=== PATIENT | female | born 1940 | race Two or more races ===

== ENCOUNTER 2017-04-15 12:00 | Inpatient (IN) | payer MEDICARE, OTHER ==
--- NOTE | ~2017-04-15 | DS ---
Unit #: [id number] #: [id number] Patient: KEMI BRADLEY [id number] [address] [address] [id number] I MR#: [id number] NAME: KEMI BRADLEY. ROOM: 241 Age: 76 Sex: F Admission Date: 04/15/2017 : 1940 Discharge Date: 04/18/2017 Attending Physician: Christian Saucedo M.D. Primary Care Physician: Aixa Chow M.D. DISCHARGE SUMMARY PRIMARY DIAGNOSIS Unable to ambulate secondary to acute compression fracture of the lumbar 4 vertebral body. SECONDARY DIAGNOSES 1. Iron deficiency anemia. 2. Transaminitis, improving at discharge with pending hepatitis viral panel. 3. Chronic obstructive pulmonary disease, stable. 4. Diabetes mellitus type 2, stable. HOSPITAL COURSE The patient was admitted to the hospital. Interventional radiology was consulted for kyphoplasty, which was done in the afternoon on 04/17/2017. The patient's pain is much improved but still having some difficulty with ambulation and has multiple stairs in her house. Physical therapy evaluation is to be done shortly after this dictation, and if the physical therapy evaluation is supportive, the patient will be discharged to subacute rehab today. If the patient surprises us, then she would be discharged to home. Regarding her anemia, the patient did have low iron studies and was started on iron replacement for her anemia. B12 and folate were within normal limits. DISCHARGE DISPOSITION Likely to subacute rehab. DISCHARGE STATUS Stable. DISCHARGE ACTIVITY With her wheeled walker at all times. DISCHARGE DIET Diabetic diet. DISCHARGE FOLLOWUP With her primary care physician in 2-6 weeks. DISCHARGE MEDICATIONS 1. Bactroban ointment applied to abrasions b.i.d. 2. Gabapentin 300 mg p.o. t.i.d. Unit #: [id number] #: [id number] Patient: KEMI BRADLEY 3. Januvia 100 mg p.o. daily. 4. Arimidex 1 mg p.o. daily. 5. Toprol XL 50 mg p.o. daily. 6. Altace 10 mg p.o. daily. 7. Ferrous gluconate 324 mg p.o. daily. 8. Hydrocodone with Tylenol 5/325 mg 1 tablet p.o. q.4 hours p.r.n. pain. (This is a chronic medication.) 9. Glucovance 5/500 mg 2 tablets p.o. b.i.d. Dictated by... Christian Saucedo M.D. MAGO/silvestre TD: 04/18/2017 11:37 JOB #: [id number] DISCHARGE SUMMARY Page 1 of 1 X Christian Saucedo MD X DISCHARGE SUMMARY
--- NOTE | ~2017-04-15 | XA148 ---
[facility] A Service of [facility] RADIOLOGY TEXT RESULTS PATIENT: KEMI BRADLEY LOCATION: [facility] : 42 UNIT #: [id number] AGE: [address]: Christian Saucedo MD SEX: F ORDER DR: [id number] [place] [id number] [facility]. [place], [place] [address] [id number] I MR#: [id number] Acc #: [id number] NAME: KEMI BRADLEY. : 1940 SEX: F STUDY DATE/TIME: 04/17/2017 11:38 UNIT: [facility] ROOM: [facility] STUDY DESCRIPTION: XA Kyphoplasty Lumbar Attending Physician: Christian Saucedo M.D. Ordering Physician: Christian Saucedo M.D. Primary Care Physician: Aixa Chow M.D. MEDICAL IMAGING REPORT This report is preliminary unless electronic signature is present EXAM Fluoroscopically guided L4 kyphoplasty. DATE OF STUDY 04/17/2017 CLINICAL HISTORY L4 compression fracture. Back pain and osteopenia. PROCEDURE Informed consent was obtained from the patient through use of a feeder operator automatic. A skin site was selected with fluoroscopic guidance and marked, after the patient was positioned in the prone position on the fluoroscopy table. Fentanyl and Versed were administered for IV conscious sedation with hemodynamic monitoring provided by the nursing staff throughout the procedure. Total sedation time 60 minutes. After local anesthesia through a small incision, and following periosteal anesthesia, Kyphon cannulas were advanced into the L4 vertebral body via bipedicular approach. After balloon insertion and inflation, methylmethacrylate cement was injected into the cavities without complication. A total of 12.6 minutes of fluoroscopy was utilized and 4 spot images obtained. Postprocedure images showed satisfactory cement placement after successful kyphoplasty. IMPRESSION 1. Technically successful L4 bipedicular kyphoplasty. 2. Conscious sedation as above. No immediate complication. Dictated by... Yaya Iraheta M.D. [facility] A Service [facility] RADIOLOGY TEXT RESULTS PATIENT: KEMI BRADLEY [facility] [place] [id number] UNIT #: [id number] AGE: [address]: Christian Saucedo MD SEX: F ORDER DR: THIS IS AN ELECTRONICALLY VERIFIED REPORT Yaya Iraheta M.D. at 04/18/2017 5:04 PM RANDOLPH/moises TD: 04/18/2017 10:35 JOB #: [id number] MEDICAL IMAGING REPORT Page 1 of 1 COPY
--- NOTE | ~2017-04-15 | CT98 ---
[facility] A Service of [facility] RADIOLOGY TEXT RESULTS PATIENT: KEMI BRADLEY LOCATION: [facility] 241- : 42 UNIT #: [id number] AGE: [address]: Christian Saucedo MD SEX: F ORDER DR: [id number] [facility] [address] [facility] [place], [place] [address] [id number] I MR#: [id number] Acc #: [id number] NAME: KEMI BRADLEY. : 1940 SEX: F STUDY DATE/TIME: 04/15/2017 18:33 UNIT: [facility] ROOM: [facility] STUDY DESCRIPTION: CT Lumbar Spine Wo Cont Attending Physician: Christian Saucedo M.D. Ordering Physician: Lissette Brooks M.D. Primary Care Physician: Aixa Chow M.D. MEDICAL IMAGING REPORT This report is preliminary unless electronic signature is present EXAM Lumbar spine CT. HISTORY Low back pain after fall on 04/13/2017. Compression fracture L4 seen on x-ray. TECHNIQUE This CT exam was performed with one or more of the following radiation dose reduction techniques: Automatic exposure control, adjustment of mA and/or kV according to patient size, and iterative reconstruction. FINDINGS CT lumbar spine performed. Bone and soft tissue windows reviewed. Sagittal and coronal reconstructions performed. No prior imaging of this region for comparison. Visualized portions of the liver, spleen, adrenal glands, kidneys unremarkable. Atherosclerotic arterial calcifications. No adenopathy. Five lumbar type vertebral segments. Marked bony demineralization. There is a severe compression deformity of the L4 vertebral body. Loss of height most pronounced centrally at up to about 67%. Loss of height anteriorly and posteriorly on the order of about 36% relative to normal L3 vertebral body. There are visible fracture planes in the superior endplate and the inferior endplate. There is some mild haziness in the anterior paraspinal fat at the L4 level. The constellation of findings suggests that this is an acute to very early subacute fracture likely related to the patient's trauma described in history as a fall on 04/13/2017. There is retropulsion of posterior cortex more pronounced along the inferior aspect of the L4 vertebral body. Posterior retropulsion by up to about 6 mm. Posterior elements are intact. No other traumatic fractures are seen. There is overall straightening of the normal lumbar lordosis. Other vertebral body heights are normal. [facility] A Service of [facility] RADIOLOGY TEXT RESULTS PATIENT: KEMI BRADLEY LOCATION: [place] [address] : 42 UNIT #: [id number] AGE: [address]: Christian Saucedo MD SEX: F ORDER DR: Intervertebral disc space heights show moderate narrowing L5-S1. Relatively normal intervertebral disc space heights elsewhere. T11-T12, T12-L1, L1-L2, L2-L3: No disc bulge or herniation. Spinal canal diameter normal. Neural foramina patent without evidence of exiting nerve impingement. Relatively mild facet degenerative changes. L3-L4: Some minimal posterior concentric disc bulging. No spinal stenosis. The neural foramina are within normal limits of caliber. There are mild to moderate facet degenerative changes. The retropulsion of posterior cortex at L4, more pronounced inferiorly shows anterior thecal sac contact but no mass effect on the thecal sac. There is mild to mild/moderate central spinal canal narrowing on the order of about 1 cm. At L4-L5, there is no significant disc bulge. The compression deformity in conjunction with moderate to marked L4-L5 facet hypertrophic change is causing moderate foraminal narrowing bilaterally greater on the right than the left. Correlate with any L4 dermatomal symptoms, particularly on the right. L5-S1: Mild posterior concentric disc osteophyte complex. No spinal stenosis. Mild to moderate foraminal narrowing due predominant to facet degenerative change. There is no clear indication of exiting nerve impingement. IMPRESSION 1. Acute to very early subacute L4 compression deformity. Likely related to the patient's stated fall on 04/13/2017. There is marked loss of height in the central portion of L4 on the order of about about 67%. Loss of height along the anterior and posterior aspects of the L4 vertebral body about 36%. Fracture planes remain visible in the superior and inferior endplates and there is mild haziness and stranding in the fat along the anterior aspect of the L4 vertebral body consistent with post-traumatic edema. There is retropulsion of posterior cortex of the L4 vertebral body more pronounced along its inferior aspect. This results in mild to mild/moderate central spinal canal narrowing. The retropulsed cortex abuts but does not cause mass effect on the thecal sac. There is no free fragment. 2. No other traumatic fractures are seen. There is no traumatic malalignment. 3. There is narrowing of the bilateral L4-L5 neural foramina due to the compression deformity and associated moderate to marked bilateral facet degenerative changes. Narrowing greater on right than left. Correlate with any L4 dermatomal symptoms, particularly on the left. 4. Relatively mild degenerative changes elsewhere in the lumbar spine. Please see [id number] descriptions in body of report. Dictated by... [facility] A Service of [facility] RADIOLOGY TEXT RESULTS PATIENT: KEMI BRADLEY LOCATION: [place] [address] : 42 UNIT #: [id number] AGE: [address]: Christian Saucedo MD SEX: F ORDER DR: Jose Skaggs M.D. THIS IS AN ELECTRONICALLY VERIFIED REPORT Jose Skaggs M.D. at 04/17/2017 10:43 PM Neeta TD: 04/16/2017 11:32 JOB #: [id number] MEDICAL IMAGING REPORT Page 1 of 1 COPY
--- NOTE | ~2017-04-15 | XA231 ---
[facility] A Service [facility] RADIOLOGY TEXT RESULTS PATIENT: KEMI BRADLEY LOCATION: [facility] : 42 UNIT #: [id number] AGE: [address]: Christian Saucedo MD SEX: F ORDER DR: [id number] [place] [id number] [facility]. [place], [place] [address] [id number] I MR#: [id number] Acc #: [id number] NAME: KEMI BRADLEY : 1940 SEX: F STUDY DATE/TIME: 04/17/2017 9:42 UNIT: [facility] ROOM: [facility] STUDY DESCRIPTION: XA Consult Attending Physician: Christian Saucedo M.D. Ordering Physician: Christian Saucedo M.D. Primary Care Physician: Aixa Chow M.D. MEDICAL IMAGING REPORT This report is preliminary unless electronic signature is present EXAM Kyphoplasty consult. HISTORY OF PRESENT ILLNESS A 76-year-old female who fell this past Saturday and developed acute low back pain. The pain is so severe that she is bed bound and cannot get up out of bed or walk. She presented to the emergency room with this pain and imaging showed an acute L4 compression fracture. She has been given analgesic pain medications; however, it has not really helped her with her pain. She is able to get out of bed in the hospital with assistance to go to the bathroom but it is very uncomfortable for her. PAST MEDICAL HISTORY: 1. Depression 2. AODM 3. GERD. 4. COPD. 5. Essential hypertension. 6. Hyperlipidemia. 7. Breast cancer status post left lumpectomy 5 years ago. PAST SURGICAL HISTORY 1. Cholecystectomy. 2. Right hand surgery. 3. Right knee surgery. 4. Cataract extraction. SOCIAL HISTORY The patient stopped smoking 15 years ago. She does not drink alcohol. FAMILY HISTORY Noncontributory. [facility] A Service [facility] RADIOLOGY TEXT RESULTS PATIENT: KEMI BRADLEY LOCATION: [facility] : 42 UNIT #: [id number] AGE: [address]: Christian Saucedo MD SEX: F ORDER DR: ALLERGIES: Penicillin MEDICATIONS: In the hospital, she is currently on: 1. Altace 10 mg p.o. once a day, 2. Glucovance 5/500 mg tablet, 2 tablets p.o. twice a day. 3. Toprol XL 50 mg p.o. 1 a day. 4. Gabapentin 300 mg p.o. three times a day. 5. Januvia 100 mg p.o. once a day. 6. Hydrocodone/acetaminophen 5/325, 1 tablet p.o. q.4h. as needed for pain. IMAGING REVIEW: The patient has a lumbar spine CT from 04/15/2017. This shows an acute compression fracture of the L4 vertebral body with approximately 67% loss of height and retropulsion of some fracture fragment posteriorly. No other compression fractures are noted. REVIEW OF SYSTEMS: The patient complains of back pain as described above. All other systems reviewed and were negative. PHYSICAL EXAM Vital signs: The patient is afebrile. Heart rate is 80. Respirations 16, blood pressure 139/66, oxygen saturation 96% on room air. Lungs: Clear to auscultation bilaterally. Cardiac: Regular rate and rhythm, no murmur, rub or gallops. Musculoskeletal: There is a focal point tenderness involving the lower lumbar spine. ASSESSMENT/PLAN 1. A 76-year-old with acute L4 compression fracture and intractable low back pain refractory to pain medication. The low-back pain is extremely limiting this patient has mobility, and she has essentially bed bound of this point. 2. I discussed the kyphoplasty procedure with the patient along with its risks and benefits. I did discuss the goal of treatment was to reduce or hopefully eliminate her pain to that she can become more functional. I did discuss the fact that this may not completely eliminate her pain; however, the goal would be to reduce the pain enough so that she can get out of bed and perform her activities of daily living, and hopefully not be required to take any pain medication. 3. The patient understands and wishes to proceed with the procedure. She will be scheduled tomorrow for kyphoplasty of L4. Dictated by... [facility] A Service of [facility] RADIOLOGY TEXT RESULTS PATIENT: KEMI BRADLEY LOCATION: [place] [address] : 42 UNIT #: [id number] AGE: [address]: Christian Saucedo MD SEX: F ORDER DR: Christiano Kendall M.D. THIS IS AN ELECTRONICALLY VERIFIED REPORT Christiano Kendall M.D. at 04/17/2017 7:40 AM ETRRY/faisal TD: 04/16/2017 21:02 JOB #: [id number] MEDICAL IMAGING REPORT Page 1 of 1 COPY
--- NOTE | ~2017-04-15 | CR181 ---
[facility] A Service of [facility] RADIOLOGY TEXT RESULTS PATIENT: KEMI BRADLEY LOCATION: [facility] : 42 UNIT #: [id number] AGE: [address]: Lissette Brooks MD SEX: F ORDER DR: [id number] [place] [id number] [facility]. [place], [place] [address] [id number] P MR#: [id number] Acc #: [id number] NAME: KEMI BRADLEY : 1940 SEX: F STUDY DATE/TIME: 04/15/2017 16:38 UNIT: [facility] ROOM: STUDY DESCRIPTION: CR Lumbar Spine 2 or 3 Views Ordering Physician: Lissette Brooks M.D. Primary Care Physician: Aixa Chow M.D. MEDICAL IMAGING REPORT This report is preliminary unless electronic signature is present EXAM Lumbar series, 04/15/2017. INDICATION 76-year-old female who fell 2 days ago and has lumbar pain. TECHNIQUE Three views of the lumbar spine. COMPARISON There are no comparison studies. FINDINGS The bones are osteoporotic. There is a compression fracture deformity of L4 with height loss estimated on the order about 40% to 50%. This is age indeterminate without prior studies for comparison. Minimal retropulsion of the posterior margins of L4. Alignment and vertebral body heights are otherwise preserved. There is facet arthropathy from L3-4 through L5-S1 and there is degenerative disc disease at L4-5 and L5-S1. The aorta demonstrates atherosclerotic change and tortuosity. Minimal levoscoliosis. IMPRESSION 1. Age-indeterminate compression fracture of L4 with height loss estimated on the order about 40% to 50%. Minimal retropulsion of the posterior margins of L4. Correlate with patient point tenderness. This could be better assessed in terms of acuity with MRI and assessment of marrow edema. 2. Degenerative changes in the lumbar spine as described. 3. Atherosclerotic disease of the aorta which is tortuous and ectatic. STAT * RESULT STS. [facility] A Service of [facility] RADIOLOGY TEXT RESULTS PATIENT: [facility] BRADLEY [id number] UNIT #: [id number] AGE: [address]: Lissette Brooks MD SEX: F ORDER DR: Dictated by... Jeffery Bae M.D. THIS IS AN ELECTRONICALLY VERIFIED REPORT Jeffery Bae M.D. at 04/15/2017 8:03 PM CARL/moises TD: 04/15/2017 17:22 JOB #: [id number] MEDICAL IMAGING REPORT Page 1 of 1 COPY
--- NOTE | ~2017-04-15 | HP ---
Unit #: [id number] #: [id number] Patient: KEMI BRADLEY [id number] [address] [address] [id number] I MR#: [id number] NAME: KEMI BRADLEY. ROOM: 241 Age: 76 Sex: F Admission Date: 04/15/2017 : 1940 Attending Physician: Aide Stewart M.D. Primary Care Physician: Aixa Chow M.D. HISTORY AND PHYSICAL CHIEF COMPLAINT L4 compression fracture with intractable pain. HISTORY OF PRESENT ILLNESS This pleasant 76-year-old female with AODM, hypertension, COPD, is admitted for intractable back pain. The patient fell two days ago. She was running or walking towards her grandchild and possibly tripped, fell on her back, hit her left hand and her foot. She presented to this emergency department earlier today for intractable back pain and a CT scan does show a L4 compression fracture. In the ER, she was given [place] and referred for admission. The patient denies true weakness or numbness in the legs. PAST MEDICAL HISTORY 1. Depression. 2. AODM. 3. GERD. 4. COPD. 5. Essential hypertension. 6. Hyperlipidemia. 7. Breast cancer status post left lumpectomy five years ago. 8. Negative cardiac catheterization 07/26/15. 9. Cholecystectomy. 10. Right hand surgery. 11. Right knee surgery. 12. Cataract extraction. SOCIAL HISTORY The patient is originally from [place], living with her grandson, stopped smoking about 15 years ago, does not drink alcohol. FAMILY HISTORY No malignancy. ALLERGIES Penicillin. HOME MEDICATIONS Possibly: 1. Celexa. 2. Neurontin. 3. Januvia. 4. Metoprolol. Unit #: [id number] #: [id number] Patient: KEMI BRADLEY 5. Prilosec. 6. Arimidex. 7. Glyburide. 8. Metformin. 9. Ramipril. 10. Crestor. We will verify. REVIEW OF SYSTEMS Difficult to obtain due to language barrier. PHYSICAL EXAMINATION GENERAL APPEARANCE: A very pleasant, uncomfortable appearing 76-year-old female. VITAL SIGNS: Temperature 98.6. Pulse 80. Respirations 16. Blood pressure 139/66. O2 saturation 96% on room air. HEENT: Eyes: PERRLA. Extraocular muscles are intact. Pharynx is benign. NECK: Supple without adenopathy or thyromegaly. CHEST: Clear. BACK: With percussion tenderness over the lower lumbar spine. Negative straight leg raising. CARDIAC: Normal S1, S2 without S3, S4 or murmur. ABDOMEN: Bowel sounds are present. No hepatosplenomegaly, tenderness or masses. EXTREMITIES: Without edema. Pedal pulses are present. There is a small abrasion noted at the top of the left great toe. There is an abrasion near the left wrist. NEUROLOGIC: The patient is awake, alert, oriented. Cranial nerves are intact. Equal strength throughout. DIAGNOSTIC STUDIES LABORATORY: Hematocrit 35.2, normal white count, platelet count. SMA-7: Glucose 163, BUN 24, chloride 99. IMAGING: Plain x-rays show an L4 compression fracture with DJD. CT scan shows an acute to early L4 compression fracture with 67% loss of height, retropulsion, mild to moderate canal narrowing. ASSESSMENT 1. L4 compression fracture with intractable pain following a fall. 2. AODM. 3. COPD. 4. Hypertension. 5. Hyperlipidemia. 6. GERD. 7. Status post left lumpectomy for breast cancer. 8. Mild dehydration. PLAN 1. We will admit, give IV fluids and supportive treatment. 2. Interventional Radiology to see in the morning for possible kyphoplasty. 3. Pain control. 4. SCDs for DVT prophylaxis. 5. Verify home medicines. Unit #: [id number] #: [id number] Patient: KEMI BRADLEY Dictated by Aide Stewart M.D. AML/bd TD: 04/16/2017 06:34 JOB #: [id number] HISTORY AND PHYSICAL Page 1 of 1 X Aide Stewart MD HISTORY AND PHYSICAL
[~2017-04-15 12:00] MED LIST: ALTACE10 M1 PO; ALTACE10 MG PO; AMLODIPINE BESY10 MG PO; ANASTROZOLE1 MG PO; ARIMIDEX1 MG PO; ASPIR-TRIN325 MG PO; CELEBREX PO; CELECOXIB200 MG PO; CELEXA10 MG PO; CITALOPRAM HBR10 MG PO; COMBIVENT U/D3 M1 INH; COMBIVENT14.7 GM INH; CRESTOR10 MG PO; FLEXERIL PO; FUROSEMIDE40 MG PO; GABAPENTIN300 M2 PO; GABAPENTIN300 MG PO; GLUCOVANCE 5/501 TA3 PO; GLYBURIDE-METFO1 TA3 PO; JANUVIA PO; JANUVIA100 MG PO; LEVAQUIN750 M1 PO; LEVAQUIN750 MG PO; METOPROLOL SUCC50 MG PO; MICRONASE2.5 MG PO; NAPROSYN250 M1 PO; NORVASC PO; OMEPRAZOLE20 M2 PO; PHENERGAN25 MG PO; PRAVACHOL10 MG PO; PRAVASTATIN SOD10 MG PO; PROAIR HFA8.5 GM IH; RAMIPRIL10 MG PO; SYMBICORT INH; TOPROL XL50 MG PO; XOPENEX HFA15 GM INH; ZITHROMAX1 G/PKT PO
[2017-04-15 18:58] LABS: BASOPHIL% 0.7 % (0-2.5); EOSINOPHIL# 0.1 X10e3 (0-0.7); EOSINOPHIL% 0.8 % (0.0-7.0); HEMATOCRIT 35.2 % (35.0-45.0); HEMOGLOBIN 10.9 gm/dL (12.0-16.0); LYMPHOCYTE# 1.7 X10e3 (1.0-3.5); LYMPHOCYTE% 23.9 % (17.0-45.0); MEAN CELL VOLUME 74.8 FL (83-96); MEAN CORPUSCULAR HEMOGLOBIN 23.2 PG (28-34); MONOCYTE# 0.7 X10e3 (0-1.0); MONOCYTE% 10.1 % (3.0-12.0); NEUTROPHIL# 4.5 X10e3 (1.5-7.1); NEUTROPHIL% 64.5 % (40-75); PLATELET COUNT 144 X10e3 (140-420); RED CELL DISTRIBUTION WIDTH 17.1 % (11.0-15.5); WHITE BLOOD COUNT 6.9 X10e3 (4.0-10.5)
[2017-04-15 19:00] LABS: DIFF IND NO
[2017-04-15 19:15] LABS: CALCIUM SERUM 9.1 mg/dL (8.4-10.2); CREATININE SERUM 0.8 mg/dL (0.6-1.4); GLOM FILT RATE Estimated 72.7 mL/min (>60); POTASSIUM 4.4 mmol/L (3.5-5.1)
[2017-04-15 19:23] LABS: INR 1.1; PARTIAL THROMBOPLASTIN TIME 26.8 SECONDS (23.5-31.3); PROTHROMBIN TIME (PATIENT) 11.4 SECONDS (10.0-11.7)
[2017-04-15] MEDS ORDERED: OMEPRAZOLE MAGN20 MG PO (22:36)
[2017-04-15] MEDS ORDERED: ALTACE10 MG PO (22:36)
[2017-04-15] MEDS ORDERED: GLUCOVANCE 5-51 EACH PO (22:37)
[2017-04-15] MEDS ORDERED: ARIMIDEX1 MG (22:38)
[2017-04-15] MEDS ORDERED: TOPROL XL50 MG PO (22:39)
[2017-04-16] MEDS ORDERED: GABAPENTIN300 M2 PO (01:24)
[2017-04-16] MEDS ORDERED: JANUVIA PO (01:25)
[2017-04-16] MEDS ORDERED: HYDROCODON-ACE1 EAC7 PO (01:26)
[2017-04-16 06:00] LABS: BASOPHIL% 0.6 % (0-2.5); EOSINOPHIL# 0.1 X10e3 (0-0.7); EOSINOPHIL% 1.7 % (0.0-7.0); HEMATOCRIT 30.7 % (35.0-45.0); HEMOGLOBIN 9.7 gm/dL (12.0-16.0); LYMPHOCYTE# 1.6 X10e3 (1.0-3.5); LYMPHOCYTE% 23.2 % (17.0-45.0); MEAN CELL VOLUME 74.9 FL (83-96); MEAN CORPUSCULAR HEMOGLOBIN 23.6 PG (28-34); MEAN CORPUSCULAR HGB CONC 31.5 g/dL (30-36); MEAN PLATELET VOLUME 7.9 FL (6.5-11.5); MONOCYTE# 0.8 X10e3 (0-1.0); MONOCYTE% 11.5 % (3.0-12.0); NEUTROPHIL# 4.4 X10e3 (1.5-7.1); PLATELET COUNT 119 X10e3 (140-420); RED CELL DISTRIBUTION WIDTH 17.5 % (11.0-15.5); WHITE BLOOD COUNT 6.9 X10e3 (4.0-10.5)
[2017-04-16 06:02] LABS: DIFF IND NO
[2017-04-16 06:40] LABS: ALBUMIN SERUM 3.3 g/dL (3.5-5.0); BILIRUBIN,TOTAL 1.3 mg/dL (0.2-2.0); BUN/CREATININE RATIO 38.57; CALCIUM SERUM 8.6 mg/dL (8.4-10.2); CREATININE SERUM 0.7 mg/dL (0.6-1.4); GLOM FILT RATE Estimated 85.4 mL/min (>60); POTASSIUM 3.9 mmol/L (3.5-5.1); PROTEIN TOTAL SERUM 6.8 g/dL (6.0-8.3)
[2017-04-17 06:17] LABS: HEMATOCRIT 31.3 % (35.0-45.0); HEMOGLOBIN 9.7 gm/dL (12.0-16.0); MEAN CELL VOLUME 75.7 FL (83-96); MEAN CORPUSCULAR HEMOGLOBIN 23.4 PG (28-34); MEAN CORPUSCULAR HGB CONC 30.9 g/dL (30-36); MEAN PLATELET VOLUME 7.4 FL (6.5-11.5); RED BLOOD COUNT 4.14 X10e (3.90-5.30); RED CELL DISTRIBUTION WIDTH 17.2 % (11.0-15.5); WHITE BLOOD COUNT 4.4 X10e3 (4.0-10.5)
[2017-04-17 06:27] LABS: PARTIAL THROMBOPLASTIN TIME 25.2 SECONDS (23.5-31.3); PROTHROMBIN TIME (PATIENT) 11.2 SECONDS (10.0-11.7)
[2017-04-17 06:59] LABS: ALBUMIN SERUM 3.1 g/dL (3.5-5.0); BILIRUBIN,TOTAL 1.7 mg/dL (0.2-2.0); BUN/CREATININE RATIO 21.66; CALCIUM SERUM 8.5 mg/dL (8.4-10.2); CREATININE SERUM 0.6 mg/dL (0.6-1.4); GLOM FILT RATE Estimated 89.8 mL/min (>60); POTASSIUM 4.2 mmol/L (3.5-5.1); PROTEIN TOTAL SERUM 6.4 g/dL (6.0-8.3)
[2017-04-17 07:17] LABS: FOLATE (FOLIC ACID) 22.7 ng/mL (>5.8)
[2017-04-18 07:36] LABS: ALBUMIN SERUM 3.2 g/dL (3.5-5.0); BILIRUBIN,TOTAL 1.2 mg/dL (0.2-2.0); CALCIUM SERUM 8.5 mg/dL (8.4-10.2); CREATININE SERUM 0.5 mg/dL (0.6-1.4); GLOM FILT RATE Estimated 95.4 mL/min (>60); POTASSIUM 3.8 mmol/L (3.5-5.1); PROTEIN TOTAL SERUM 6.6 g/dL (6.0-8.3)
[2017-04-21 06:28] LABS: HA AB IGM (HEPPAN) Nonreactive (()); HB CORE AB IGM (HEPPAN) Nonreactive (Nonreactive); HB S AG (HEPPAN) Nonreactive (Nonreactive); HEP C AB (HEPPAN) Nonreactive (Nonreactive); HEP C AB SIGNAL TO CUTOFF 0.01 ratio (<1.00)
== END 2017-04-18 21:35 | DRG 517 ==
LOC: CED 12:00 → C2A 22:37 → CED 22:37 → CEDOF 22:37 → C2A 23:10 → CEDOF 23:10 → C2A 04-16 00:04 → CEDOF 04-16 00:04 → C2A 04-16 07:34
PROVIDERS: Internal Medicine; Radiology Diagnostic Radiology; Student in an Organized Health Care Education/Training Program
PROC: 0QS03ZZ Reposition Lumbar Vertebra, Percutaneous Approach (ICD-10-PCS; principal; 2017-04-17)
PROC: 0QU03JZ Supplement Lumbar Vertebra with Synthetic Substitute, Percutaneous Approach (ICD-10-PCS; 2017-04-17)
DX: S32.049A Unspecified fracture of fourth lumbar vertebra, initial encounter for closed fracture (principal); J44.9 Chronic obstructive pulmonary disease, unspecified; E11.9 Type 2 diabetes mellitus without complications; F32.9 Major depressive disorder, single episode, unspecified; I10 Essential (primary) hypertension; D50.9 Iron deficiency anemia, unspecified; W01.0XXA Fall on same level from slipping, tripping and stumbling without subsequent striking against object, initial encounter; Y92.009 Unspecified place in unspecified non-institutional (private) residence as the place of occurrence of the external cause; K21.9 Gastro-esophageal reflux disease without esophagitis; E78.5 Hyperlipidemia, unspecified; Z85.3 Personal history of malignant neoplasm of breast; Z90.49 Acquired absence of other specified parts of digestive tract; Z98.49 Cataract extraction status, unspecified eye; Z87.891 Personal history of nicotine dependence; Z88.0 Allergy status to penicillin; E86.0 Dehydration; R74.0 Nonspecific elevation of levels of transaminase and lactic acid dehydrogenase [LDH]; Z79.84 Long term (current) use of oral hypoglycemic drugs
CPT/HCPCS: 72100; 72131; 76140; 80048; 80053; 80074; 82607; 82728; 82746; 82947; 83540; 83550; 85025; 85027; 85610; 85730; 97161; 97167; 97530; 97535; 99285; C1713; G8978-GP; G8979-GP; G8987-GO; G8988-GO; J1815; J2250; J2270; J2405; J3010; Q9967